=== PATIENT | female | born 1955 | race Caucasian/White ===

== ENCOUNTER → 2017-03-28 | Outpatient (CLI) | payer BC | END | disposition home or self-care (01) | LOC: LAB.O 08:29 | PROVIDERS: ATTEND Nurse Practitioner Family | DX: R19.7 Diarrhea, unspecified (principal) ==

== ENCOUNTER → 2018-11-12 | Outpatient (CLI) | payer BC, MEDICARE ==
--- NOTE | 2018-11-12 13:31 | CT ---
EXAM DESCRIPTION: Chest w/Contrast CLINICAL HISTORY: 63 years, Female, R91.8 cough COMPARISON: None TECHNIQUE: Thin-section noncontrast axial CT images are obtained according to our protocol. Reconstructed MPR images are created and reviewed as well. FINDINGS: Lungs: No consolidating pulmonary infiltrate or groundglass infiltrate. Coronal images show small subpleural nodule in the anterior segment right upper lobe which measures 3 mm and is noncalcified (coronal image 42) with another calcified nodule more inferiorly in the right middle lobe anteriorly which measures 3 mm. Linear scarring is seen in the lingula. Another tiny nodule is seen in the subpleural left lower lobe measuring 3 mm. Mediastinum: Lymph nodes are normal in size. Normal vascular contours. Heart size is normal with no pericardial effusion. Chest wall/axilla: No mass or adenopathy. Lower neck/supraclavicular: No mass or adenopathy. Upper abdomen: Small cyst in the left lobe of the liver 1.4 cm. Otherwise unremarkable upper abdominal viscera. IMPRESSION: Nodules measuring 3 mm in the right middle lobe, right upper lobe and left lower. Follow up as per recommendations below. 2017 Fleischner Society Recommendations for Multiple Solid Lung Nodules Follow-Up base on size (average of long- and short-axis diameters). Use most suspicious nodule for followup. Nodule Size <6 mm Low-Risk Patient: No routine follow-up Nodule Size <6 mm High-Risk Patient: Optional CT at 12 months This exam was performed according to our departmental dose-optimization program, which includes automated exposure control, adjustment of the mA and/or kV according to patient size and/or use of iterative reconstruction technique. Total DLP equals 467.74 mGycm. Electronically signed by: Matias Turk MD 11/12/2018 1:29 PM [facility]
== END ==
LOC: CT 12:08
PROVIDERS: ATTEND General Practice
DX: R91.8 Other nonspecific abnormal finding of lung field (principal)

== ENCOUNTER → 2020-05-18 | Outpatient (CLI) | payer BC, MEDICARE ==
--- NOTE | 2020-05-18 15:16 | RAD ---
EXAM DESCRIPTION: Knee,Right Complete: CR/DR/XR. CLINICAL HISTORY: 65 years FemalePAIN IN RIGHT KNEE COMPARISON: Decreased bone density. TECHNIQUE: 4 views AP standing 45 degrees flexion, AP standing, lateral standing and patellar sunrise right knee. FINDINGS: Severe narrowing of the medial compartment almost [id number] with marginal spurs. Genu varus. Tibial spine spurs. Minimal medial subluxation of femur on tibia minimal suprapatellar effusion. Medial and lateral marginal spurs with minimal arthrosis in the medial patellofemoral joint. Posterior tibial marginal spurs. No abnormal radiodense objects in the soft tissues or joint spaces. IMPRESSION: Genu varus right knee with severe narrowing medial compartment and marginal spurs. Minimal medial subluxation of the femur on the tibia. Suprapatellar effusion. Decreased bone density. No fracture. Electronically signed by: Davy Valladares MD 05/18/2020 3:14 PM CDT
--- NOTE | 2020-05-18 15:19 | RAD ---
EXAM DESCRIPTION: Pelvis: CR/DR/XR CLINICAL HISTORY: PAIN IN UNSP HIP COMPARISON: Radiographs right knee same visit. TECHNIQUE: One view AP Pelvis FINDINGS: No fracture dislocation. Decreased bone density. Hip joints are symmetric. Minimal hypertrophy of the acetabula. Normal contour of the femoral heads and necks. No displaced fracture. Sclerosis in the mid left sacrum medial to the inferior SI joint versus soft tissue density. Spondylosis and scoliosis of the lumbar spine. Hip joint. No abnormal radiodense objects in the soft tissues or joint spaces. IMPRESSION: Decreased overall bone density. Early arthrosis bilateral hip joints. Scoliosis lumbar spine. If Pelvic pain persists, consider bony pelvis MRI. Electronically signed by: Davy Valladares MD 05/18/2020 3:17 PM CDT
== END ==
LOC: RAD 09:08
PROVIDERS: ATTEND Orthopaedic Surgery
DX: M16.0 Bilateral primary osteoarthritis of hip (principal); M41.86 Other forms of scoliosis, lumbar region; M21.161 Varus deformity, not elsewhere classified, right knee; M25.861 Other specified joint disorders, right knee; S83.191A Other subluxation of right knee, initial encounter; M85.861 Other specified disorders of bone density and structure, right lower leg; M25.461 Effusion, right knee